=== PATIENT | female | born 1970 | race Caucasian/White ===

== ENCOUNTER 2018-02-07 12:47 | Inpatient (IN) | payer OTHER ==
[~2018-02-07] VITALS: Ht 165.1 cm; Wt 77.1 kg
[~2018-02-07 12:47] MED LIST: ORPH100T PO
== END 2018-02-11 16:06 | disposition home or self-care (01) | DRG 689 ==
LOC: ER 12:47 → SEC-K 21:36 → O/R 21:36 → SURH 22:15 → O/R 22:35 → SURG 02-08 01:54
PROC: BW21ZZZ Computerized Tomography (CT Scan) of Abdomen and Pelvis (ICD-10-PCS; 2018-02-07)
PROC: 0T9680Z Drainage of Right Ureter with Drainage Device, Via Natural or Artificial Opening Endoscopic (ICD-10-PCS; principal; 2018-02-08)
DX: N13.6 Pyonephrosis (principal); A41.9 Sepsis, unspecified organism